=== PATIENT | male | born 1970 | race Two or more races ===

== ENCOUNTER 2018-03-01 15:33 | Emergency (ER) | payer OTHER ==
[~2018-03-01] VITALS: Ht 172.7 cm; Wt 86.2 kg
[~2018-03-01 15:33] MED LIST: BACTROBAN22 GM TP; IBUPROFEN800 MG PO; LIDODERM30 EA TP; MEDROL4 MG PO; ORPH100T PO; REYATAZ100 MG PO; SEPTRA DS TABLE1 TAB PO; TRUVADA TABLET1 TAB PO
[2018-03-01] MEDS ORDERED: CLONAZEPAM0.5 MG (15:41)
[2018-03-01] MEDS ORDERED: STRIBILD TABLE1 EACH (15:41)
[2018-03-01] MEDS ORDERED: ESCITALOPRAM OX20 MG (15:42)
== END 2018-03-01 21:44 | disposition home or self-care (01) ==
LOC: ER 15:33
DX: I86.1 Scrotal varices (principal); N43.2 Other hydrocele; N50.811 Right testicular pain; R10.31 Right lower quadrant pain

== ENCOUNTER 2018-10-22 21:55 | Emergency (ER) | payer OTHER ==
[~2018-10-22] VITALS: Ht 172.7 cm; Wt 88.5 kg
[~2018-10-22 21:55] MED LIST changes: +CLONAZEPAM0.5 MG; +ESCITALOPRAM OX20 MG; +STRIBILD TABLE1 EACH
[2018-10-22] MEDS ORDERED: STRIBILD TABLE1 EACH (22:18)
== END 2018-10-22 22:54 | disposition home or self-care (01) ==
LOC: ER 21:55
DX: L02.212 Cutaneous abscess of back [any part, except buttock and flank] (principal)

== ENCOUNTER 2019-03-12 21:18 | Emergency (ER) | payer OTHER ==
[~2019-03-12] VITALS: Ht 172.7 cm; Wt 99.8 kg
[2019-03-12] MEDS ORDERED: CLONAZEPAM0.5 M1 PO (21:34)
[2019-03-13] MEDS ORDERED: MEDROLPACK PO (02:46)
[2019-03-13] MEDS ORDERED: ZITHROMAX500 MG PO (02:46)
[2019-03-13] MEDS ORDERED: TUSNEL LIQUID178 ML PO (02:46)
[2019-03-13] MEDS ORDERED: ALBUTEROL2.5 MG/3 M IH (02:47)
== END 2019-03-13 03:08 | disposition home or self-care (01) ==
LOC: ER 21:18
DX: J45.909 Unspecified asthma, uncomplicated (principal)

== ENCOUNTER → 2020-08-12 | Outpatient (CLI) | payer OTHER ==
[~2020-08-12] MED LIST changes: +ALBUTEROL2.5 MG/3 M IH; +CLONAZEPAM0.5 M1 PO; +MEDROLPACK PO; +TUSNEL LIQUID178 ML PO; +ZITHROMAX500 MG PO
== END | disposition home or self-care (01) ==
LOC: TOM 12:15
PROVIDERS: ATTEND Internal Medicine
DX: J12.82 Pneumonia due to coronavirus disease 2019 (principal)

== ENCOUNTER 2021-07-13 01:21 | Emergency (ER) | payer OTHER ==
[~2021-07-13] VITALS: Ht 172.7 cm; Wt 78.5 kg
[2021-07-13] MEDS ORDERED: XOPENEX0.63 MG/3 (01:38)
[2021-07-13] MEDS ORDERED: XOPENEX0.63 MG/3 IH (04:12)
[2021-07-13] MEDS ORDERED: TUSNEL LIQUID178 ML PO (04:12)
[2021-07-13] MEDS ORDERED: MEDROLPACK PO (04:12)
[2021-07-13] MEDS ORDERED: MONTELUKAST SODI4 M1 PO (04:12)
== END 2021-07-13 05:12 | disposition home or self-care (01) ==
LOC: ER 01:21
DX: J45.909 Unspecified asthma, uncomplicated (principal); B20 Human immunodeficiency virus [HIV] disease; Z20.822 Contact with and (suspected) exposure to COVID-19